=== PATIENT | female | born 1935 | race Caucasian/White ===

== ENCOUNTER → 2016-10-18 | Outpatient (CLI) | payer BC ==
--- NOTE | 2016-10-18 11:56 | DIAGNOSTIC IMAGING REPORT ---
VIDEO SWALLOW HISTORY: DYSPHAGIA TECHNIQUE: Video fluoroscopic evaluation of swallowing was performed in the AP and lateral projections by the speech pathology staff. The patient is fed nectar-thick and thin liquid barium, a barium coated wafer, and barium pudding. FLUOROSCOPY TIME: 4.1 minutes. COMPARISON STUDY: None. FINDINGS: There is normal hyoid excursion and epiglottic deflection. The patient experienced penetration without aspiration with thin liquids without a straw. With a straw, the patient experienced both penetration and aspiration with thin liquids which was cleared with coughing. Otherwise, there was no significant penetration or aspiration identified. Swallowing function is otherwise within normal limits. IMPRESSION: 1. Aspiration with straw and thin liquids. 2. Please see the speech pathologist report for detailed findings and recommendations. Electronically signed by: Xavier Guthrie M.D. 10/18/2016 11:55 AM Dictated Date/Time: 10/18/2016 11:51 AM
--- NOTE | 2016-10-18 13:14 | SWALLOWING EVALUATION ---
HISTORY: This 80 year-old woman, from, was referred for a VFSS at [facility] in order to rule out aspiration address c/o dysphagia and difficulty swallowing pills. The patient has a PMH significant for HTN, dementia, hypothyroidism, constipation. Currently the patient's diet level is regular. PROCEDURE: The patient was seen in the Radiology Department of [facility] for the VFSS. Cursory examination of the oral cavity revealed adequate dentition. Movement of the articulators was WNL. The patient was seated upright in a wheelchair and was viewed in both the Anterior-Posterior (A-P) and Lateral planes. Volitional phonation exercises completed in the A-P plane revealed bilateral vocal fold movement and vocal intensity within functional limits. In the lateral plane, the patient was given the following boluses: 1 tsp. thin liquid barium x 2, single swallow thin liquid barium self-presented from a cup, sequential swallows of thin liquid barium self-presented from a cup and from a straw, 1 tsp. nectar-thick liquid barium, single swallow nectar-thick liquid barium self-presented from a cup, sequential swallows nectar-thick liquid barium self-presented from a cup, 1 tsp. barium pudding, and 1 club cracker with barium pudding. The patient was then repositioned into the A-P plane and given 1 tsp. barium pudding. RESULTS: Oral Stage: Labial closure was adequate. Tongue control was reduced with bolus escaping to the floor of the mouth. Mastication was slightly prolonged. Bolus transport was slow with slow tongue movement. There was trace residue lining the tongue after the initial swallow. Pharyngeal swallow was delayed with the bolus had at the posterior laryngeal surface of the epiglottic when swallow was initiated. Patient took large sips of liquids both from the cup and with a straw. This caused her to need multiple swallows to completely clear a single bolus. She tended to hold the bolus in the oral cavity for a prolonged period before initiating swallow. The patient intermittently put herself into hyperextended neck posture causing decreased airway protection. She was able to maintain neutral chin positioning when verbally cued to do so. Pharyngeal Stage: Soft palate elevation was complete. Laryngeal elevation was reduced with partial superior movement of thyroid cartilage and partial approximation of the arytenoids to epiglottic petiole. There was partial anterior excursion of the hyoid. Epiglottic movement was complete. Laryngeal vestibular closure was incomplete with a narrow column of contrast in the laryngeal vestibule. Pharyngeal stripping wave was present, but diminished. Pharyngeal contraction was complete. Pharyngoesophageal segment opening had complete distension and duration. Tongue base retraction was reduced with a trace column present between the tongue base and the posterior pharyngeal wall. There was trace residue in the valleculae. There was penetration and SILENT aspiration of thin liquids when swallowing with a straw. There was no aspiration without use of straws on thin liquids. Pharyngeal movement was reduced. Esophageal Stage: There was mild esophageal retention which cleared with time. SUMMARY/RECOMMENDATIONS: This patient presents with mild-moderate oral-pharyngeal dysphagia characterized by penetration and aspiration of thin liquids with straw and prolonged hold of the oral bolus. The following is recommended: 1. Regular diet, thin liquids. 2. Aspiration precautions: NO straws. SMALL bites and sips. Patient should be seated fully upright during meal. 3. Consider follow-up treatment with [facility] services via Home [facility] to educate caregivers and implement strategies with patient in home setting. A summary of the results and recommendations was discussed with patient and caregivers and understanding was verbalized. Thank you for referral of this patient. Please contact me at if any additional information is needed. Marcela Lam [facility]
== END | disposition home or self-care (01) ==
LOC: C.RAD 10:35
PROVIDERS: ATTEND Family Medicine
DX: R13.10 Dysphagia, unspecified (principal)